=== PATIENT | male | born 1965 ===

== ENCOUNTER 2021-09-22 17:59 | Emergency (ER) | payer MEDICARE ==
[2021-09-22] MEDS ORDERED: Mupirocin Oint 22 GM Tube ONE (20:14)
--- NOTE | 2021-09-22 20:18 | EDM.PDOC ---
ED HPI GENERAL MEDICAL PROBLEM - General Chief Complaint: Skin Complaint Stated Complaint: STAFF INFECTION, LEFT ARM ITCHY Time Seen by Provider: 09/22/21 20:13 Source of Information: Reports: Patient, RN History Limitations: Reports: No Limitations - History of Present Illness INITIAL COMMENTS - FREE TEXT/NARRATIVE: ED with c/orash to left inner arm since Friday, itching, red, started on upper area now along wrist also. Hx staph infection, similar appearance few years ago. Denies fever or chills, no other skin areas affected. - Related Data Allergies Allergy/AdvReac Type Severity Reaction Status Date / Time No Known Allergies Allergy Verified 09/22/21 20:06 Home Meds: Home Meds PARoxetine HCl [Paxil] 20 mg PO DAILY 09/22/21 [History] Past Medical History - Past Health History Medical/Surgical History: Denies Medical/Surgical History Psychiatric History: Reports: Anxiety - Past Surgical History HEENT Surgical History: Reports: Tonsillectomy Social & Family History - Family History Family Medical History: No Pertinent Family History - Tobacco Use Tobacco Use Status *Q: Current Every Day Tobacco User Years of Tobacco use: 37 Packs/Tins Daily: 1.5 - Caffeine Use Caffeine Use: Reports: Coffee - Recreational Drug Use Recreational Drug Use: No ED ROS GENERAL - Review of Systems Review Of Systems: See Below Constitutional: Denies: Fever, Chills, Fatigue, Weight Loss HEENT: Reports: No Symptoms Respiratory: Reports: No Symptoms Cardiovascular: Reports: No Symptoms GI/Abdominal: Reports: No Symptoms Musculoskeletal: Reports: No Symptoms Skin: Reports: Rash Neurological: Reports: No Symptoms ED EXAM, SKIN/RASH Exam: See Below Exam Limited By: No Limitations General Appearance: Alert, No Apparent Distress Eye Exam: Bilateral Eye: EOMI Ears: Hearing Grossly Normal Nose: Normal Inspection Throat/Mouth: Normal Voice Neck: Normal Inspection Respiratory/Chest: No Respiratory Distress, Lungs Clear, Normal Breath Sounds Cardiovascular: Normal Peripheral Pulses, Regular Rate, Rhythm GI/Abdominal: Normal Bowel Sounds Back Exam: Normal Inspection, Full Range of Motion Extremities: Normal Inspection Neurological: Alert, Oriented Psychiatric: Normal Affect, Normal Mood Skin: Warm, Dry, Rash (puritic scaley crusted rash left inner proximal forearm, and inner wrist, no burrowing noted. mild errythematous base) Characteristics: Papular, Urticarial Associated features: Inflammation Course - Vital Signs Last Recorded V/S: Last Vital Signs Temp 98.3 F 09/22/21 20:26 Pulse 72 09/22/21 20:26 Resp 16 09/22/21 20:26 BP 133/75 09/22/21 20:00 Pulse Ox 97 09/22/21 20:00 - Orders/Labs/Meds Meds: Medications Discontinued Medications Generic Name Dose Route Start Last Admin Trade Name Eric PRN Reason Stop Dose Admin Mupirocin Confirm 09/22/21 20:14 09/22/21 20:20 Mupirocin Oint 22 Gm Tube Administered 09/22/21 20:15 Not Given Dose 22 gm .ROUTE .STK-MED ONE Departure - Departure Time of Disposition: 20:18 Disposition: Home, Self-Care 01 Condition: Good Clinical Impression: Pruritic rash - Discharge Information *PRESCRIPTION DRUG MONITORING PROGRAM REVIEWED*: No *COPY OF PRESCRIPTION DRUG MONITORING REPORT IN PATIENT NARCISA: No Instructions: Rash, Adult, [id number] Forms: ED Department Discharge Additional Instructions: mupirocin ointment, aply affected area 3 times daily until resolved clinic follow up next week if not improving or increased redness swelling or develop fever cover if weeping, tylenol every 4 hours as needed for discomfort or fever Sepsis Event Note (ED) - Evaluation Sepsis Screening Result: No Definite Risk - Focused Exam Vital Signs: Vital Signs Temp Pulse Resp BP Pulse Ox 09/22/21 20:26 98.3 F 72 16 09/22/21 20:00 98.2 F 76 16 133/75 97
== END 2021-09-22 20:27 | disposition home or self-care (01) ==
LOC: DL.ED 17:59
DX: L29.9 Pruritus, unspecified (principal); Z72.0 Tobacco use
CPT/HCPCS: 99282; A9270-GY

== ENCOUNTER 2025-01-10 11:34 | Emergency (ER) | payer MEDICARE ==
[2025-01-10 12:40] LABS: HEMOGLOBIN 11.9 g/dL (14.0-18.0); MEAN CORPUSCULAR HEMOGLOBIN 31.5 pg (27.0-34.0); MEAN CORPUSCULAR VOLUME 89.9 fL (80-100); PLATELET COUNT,PLT 697 10^3/uL (150-450); RED BLOOD CELL COUNT 3.78 10^6/uL (4.6-6.2); WHITE BLOOD CELL COUNT,WBC 41.6 10^3/uL (5.0-10.0)
[2025-01-10 12:41] LABS: BASOPHILS PERCENT AUTO 0.1 % (0.0-1.0); EOSINOPHILS PERCENT AUTO 0.4 % (1.0-3.0); LYMPHOCYTES PERCENT AUTO 2.5 % (20.5-50.1); MONOCYTES PERCENT AUTO 4.1 % (2-8); NEUTROPHILS PERCENT AUTO 92.9 % (42.2-75.2)
[2025-01-10 12:53] LABS: BAND PERCENT MAN 2 %; LYMPHOCYTES PERCENT MAN 3 % (20-50); MONOCYTES PERCENT MAN 3 % (2-8); SEG NEUTROPHILS PERCENT MAN 92 % (42-75)
[2025-01-10 13:01] LABS: ALBUMIN 2.6 g/dL (3.4-5.0); ALKALINE PHOSPHATASE 118 U/L (46-116); ANION GAP 13.3 mEq/L (7-13); ASPARTATE AMNIOTRANSFERASE,AST 14 U/L (15-37); BILIRUBIN TOTAL 0.4 mg/dL (0.2-1.0); BLOOD UREA NITROGEN,BUN 13 mg/dL (7-18); BUN/CREATININE RATIO 14.1 (No establ ref range); CALCIUM 8.7 mg/dL (8.5-10.1); CARBON DIOXIDE,CO2 28 mmol/L (21-32); CHLORIDE,CL 89 mmol/L (98-107); CREATININE 0.92 mg/dL (0.70-1.30); EST CRCL DRUG DOSING (CG) 64.79 mL/min; GLUCOSE RANDOM 115 mg/dL (70-99); MAGNESIUM 1.9 mg/dL (1.8-2.4); POTASSIUM,K 3.3 mmol/L (3.5-5.1); PROTEIN TOTAL,TP 8.1 g/dL (6.4-8.2); SODIUM,NA 127 mmol/L (136-145)
[2025-01-10 13:02] LABS: LACTIC ACID 1.7 mmol/L (0.4-2.0)
[2025-01-10 13:16] LABS: ALANINE AMINOTRANSFERASE,ALT 23 U/L (16-63)
[2025-01-10] MEDS: Sodium Chloride 0.9% 1,000 ML IV ONE (13:18)
[2025-01-10] MEDS: Diphtheria,Pertussis(Acell),Tetanus Vaccine 0.5 ML Syringe IM ONE (13:19)
[2025-01-10] MEDS: Piperacillin/Tazobactam 4.5 GM in Sodium Chloride 0.9% 100 ML IV ONE (13:19)
[2025-01-10 13:21] LABS: A/G RATIO 0.47; ESTIMATED GFR 97 mL/min (>=60); ETHANOL BLOOD MEDICAL < 3 mg/dL (0)
[2025-01-10] MEDS: Lactated Ringers 1,000 ML IV SCH (14:03)
[2025-01-10] MEDS: Potassium Chloride 10 MEQ Tab.ER PO ONE (14:10)
[2025-01-10 15:08] LABS: APPEARANCE,URINE CLEAR (CLEAR); BILIRUBIN,URINE NEGATIVE (NEGATIVE); COLOR,URINE YELLOW (YELLOW); GLUCOSE,URINE NEGATIVE (NEGATIVE); KETONES,URINE NEGATIVE (NEGATIVE); LEUKOCYTE ESTERASE,URINE NEGATIVE (NEGATIVE); NITRITE,URINE NEGATIVE (NEGATIVE); OCCULT BLOOD,URINE NEGATIVE (NEGATIVE); PROTEIN,URINE NEGATIVE (NEGATIVE); UROBILINOGEN,URINE 0.2 mg/dL (0.2-1.0)
[2025-01-10 15:13] LABS: AMPHETAMINES,URINE NEGATIVE (NEGATIVE); BARBITURATES,URINE NEGATIVE (NEGATIVE); BENZODIAZEPINE,URINE NEGATIVE (NEGATIVE); MDMA (ECSTASY), URINE NEGATIVE (NEGATIVE); METHADONE,URINE NEGATIVE (NEGATIVE); METHAMPHETAMINES,URINE NEGATIVE (NEGATIVE); OPIATES,URINE NEGATIVE (NEGATIVE); OXYCODONE,URINE NEGATIVE (NEGATIVE); PHENCYCLIDINE,URINE NEGATIVE (NEGATIVE); TCA,URINE NEGATIVE (NEGATIVE)
[2025-01-10] MEDS: Nicotine 21 MG/24 Hr Patch TRDERM ONE (15:20)
[2025-01-10] MEDS: Acetaminophen 325 MG Tab PO ONE (16:04)
[2025-01-10] MEDS: VANCOmycin 1.25 GM in Sodium Chloride 0.9% 250 ML IV ONE (16:05)
== END 2025-01-10 17:11 ==
LOC: DL.ED 11:34
DX: L03.115 Cellulitis of right lower limb (principal); E86.0 Dehydration; E87.6 Hypokalemia; E87.1 Hypo-osmolality and hyponatremia; F17.210 Nicotine dependence, cigarettes, uncomplicated; Z88.0 Allergy status to penicillin; Z79.899 Other long term (current) drug therapy; Z23 Encounter for immunization
CPT/HCPCS: 36415; 73552; 73562; 76881; 80053; 80305; 80307; 81003; 83605; 83735; 85025; 86140; 87040; 87070; 90471; 90715; 96361; 96365; 96367; 99285; A9270; J2543; J3371; J3490; J7120; 87077; 87186